=== PATIENT | female | born 1970 | race Native Hawaiian/Other Pacific Islander ===

== ENCOUNTER 2017-01-23 11:49 | Outpatient (CLI) | payer OTHER | END 2017-01-23 19:05 | disposition home or self-care (01) | LOC: RAD 11:49 | DX: R07.89 Other chest pain (principal); R06.02 Shortness of breath ==

== ENCOUNTER 2021-06-21 10:28 | Emergency (ER) | payer OTHER ==
[~2021-06-21] VITALS: Ht 170.2 cm; Wt 69.9 kg
[2021-06-21 10:35] VITALS: TEMP 97.8
[2021-06-21 10:58] LABS: PLATELET COUNT 191 K/uL (152-353)
[2021-06-21 12:51] VITALS: BP 123/78
== END 2021-06-21 12:55 | disposition home or self-care (01) ==
LOC: ED 10:28
PROVIDERS: Emergency Medicine
DX: K52.89 Other specified noninfective gastroenteritis and colitis (principal)
CPT/HCPCS: 36415; 80053; 81000; 82150; 83690; 84484; 85027; 93005; 96360; 99284